=== PATIENT | female | born 1945 | race Caucasian/White ===

== ENCOUNTER 2017-05-29 02:11 | Observation (INO) | payer MEDICARE, OTHER ==
[~2017-05-29] VITALS: Ht 154.9 cm; Wt 90.3 kg
[2017-05-29] VITALS (151 sets, daily range): BP systolic 115–148; BP diastolic 35–63; PULSE 58–79; TEMP 97.9–99.5; O2SAT 96–100
[~2017-05-29 02:11] MED LIST: ALEVE 220MG220 MG PO; AMBIEN 10MG10 MG PO; AMITRIPTYLINE H25 M1 PO; CALTRATE-600 W600 MG PO; CARAFATE 1GM1 G PO; CYMBALTA 60MG60 MG PO; CYPROHEPTADINE4 MG PO; DEXILANT30 MG; GLUCOPHAGE XR500 M1 PO; HYZAAR 50-12.1 UDTAB PO; MEGA RED; NASACORT AQ N16.5 GM NS; PERCR 7.5 PO; REGLAN 10MG10 MG/TAB PO; SKELAXIN 800MG800 MG PO; ULTRAM 50MG TAB50 MG PO; VERAMYST27.5 MCG/A NS; VITAMIN C500 MG PO; WOMEN'S ONE DAI1 TAB PO
[2017-05-29] MEDS ORDERED: HYZAAR 50-12.1 UDTAB PO (02:28)
[2017-05-29] MEDS ORDERED: AMBIEN 10MG10 MG PO (02:33)
[2017-05-29] MEDS ORDERED: PREDNISONE 5MG5 MG PO (02:36)
[2017-05-29] MEDS ORDERED: TYLENOL W/COD1 UDTAB PO (02:37)
[2017-05-29] MEDS ORDERED: GLUCOPHAGE XR500 M1 PO (02:38)
[2017-05-29] MEDS ORDERED: ULTRAM 50MG TAB50 MG PO (02:38)
[2017-05-29] MEDS ORDERED: PLAQUENIL 200M200 MG PO (02:39)
[2017-05-29] MEDS ORDERED: JANUVIA 100MG100 MG PO (02:39)
[2017-05-29] MEDS ORDERED: CYMBALTA 60MG60 MG PO (02:40)
[2017-05-29] MEDS ORDERED: ARAVA10 MG PO (02:41)
[2017-05-29] MEDS ORDERED: DEXILANT60 MG PO (02:41)
[2017-05-29] MEDS ORDERED: METAXALL800 MG PO (02:42)
[2017-05-29] MEDS ORDERED: ZYRTEC 10MG10 MG PO (02:42)
[2017-05-29] MEDS ORDERED: FLONASEALLERGY NS (02:44)
[2017-05-29] MEDS ORDERED: PENNSAID 150 M150 ML TOP (02:45)
[2017-05-29] MEDS ORDERED: LOPRESSOR 550 MG/TAB PO (02:46)
[2017-05-29] MEDS ORDERED: NATURE'S BLE1000 MCG PO (02:48)
[2017-05-29] MEDS ORDERED: CENTRUM1 TA1 PO (02:49)
[2017-05-29] MEDS ORDERED: VITAMIND3 5000 PO (02:52)
[2017-05-29] MEDS ORDERED: B-12 250 MCG PO (02:53)
[2017-05-29] MEDS ORDERED: MASON NATURAL500 MG PO (02:54)
[2017-05-29 03:20] LABS: MEAN CELL VOLUME 90 fl (80.0-100.0); MEAN CORPUSCULAR HGB CONC 32 g/dl (33.0-37.0); MEAN PLATELET VOLUME 9.7 fl (7.4-10.4); PLATELET COUNT 164 K/mm3 (130-400); RED BLOOD COUNT 3.77 M/mm3 (4.10-5.30); REDCELL DISTRIBUTION WIDTH-CV 14.7 % (11.5-14.5); WHITE BLOOD COUNT 5.5 K/mm3 (4.8-10.8)
[2017-05-29 03:25] LABS: ADD PATHOLOGY DIFF REVIEW NO; HEMATOCRIT 33.9 % (37.0-47.0); HEMOGLOBIN 10.8 g/dl (12.5-16.0); MEAN CORPUSCULAR HEMOGLOBIN 29 pg (27.0-31.0)
[2017-05-29 03:31] LABS: ADJUSTED CALCIUM 9.4 mg/dL (8.4-10.2); ALBUMIN 3.1 gm/dL (3.5-5.0); BILIRUBIN,TOTAL 0.4 mg/dL (0.0-1.0); CALCIUM 8.7 mg/dL (8.4-10.2); CREATININE, serum 1.45 mg/dL (0.52-1.25); POTASSIUM 4.2 mmol/L (3.4-5.0)
[2017-05-29 03:37] LABS: BAND 3 % (0-10); METAMYELOCYTE 2 % (0-0); NEUTROPHILS 82 % (42.0-75.2); ROULEAUX 1+; TOTAL CELLS COUNTED 100
[2017-05-29 03:38] LABS: MICROCYTOSIS 1+; POIKILOCYTOSIS 1+; POLYCHROMASIA 1+; TEAR DROP CELLS 1+
[2017-05-29 10:16] LABS: PH 5 (5-8); SQUAMOUS EPITHELIAL 0-2 /hpf; URINE APPEARANCE Cloudy; URINE BACTERIA Many /hpf; URINE BILIRUBIN Negative (NEGATIVE); URINE BLOOD Negative (NEGATIVE); URINE COLOR Yellow; URINE GLUCOSE Negative (NEGATIVE); URINE KETONE Negative (NEGATIVE); URINE UROBILINOGEN Negative (NEGATIVE)
[2017-05-29 10:19] LABS: URINE WBC >50 /hpf
[2017-05-29 18:21] LABS: CALCIUM 8.3 mg/dL (8.4-10.2); CREATININE, serum 1.28 mg/dL (0.52-1.25); POTASSIUM 4.5 mmol/L (3.4-5.0)
[2017-05-30 03:37] VITALS: BP 129/34; PULSE 68; TEMP 99.1
[2017-05-30] MEDS ORDERED: CEFTIN500 MG PO (08:59)
[2017-05-30] MEDS ORDERED: NAPROSYN 2250 MG/TAB PO (09:00)
[2017-05-30] MEDS ORDERED: NORCO 325 MG-7.1 TAB PO (09:01)
[2017-05-30 10:02] VITALS: BP 151/61; PULSE 92; TEMP 98.2
== END 2017-05-30 13:53 ==
LOC: COL.ER 02:11 → ICU 05:00 → SURG 08:24
PROVIDERS: Emergency Medicine; Nurse Practitioner Family
DX: S82.191A Other fracture of upper end of right tibia, initial encounter for closed fracture (principal); W10.8XXA Fall (on) (from) other stairs and steps, initial encounter; D64.9 Anemia, unspecified; N17.9 Acute kidney failure, unspecified; M16.11 Unilateral primary osteoarthritis, right hip; M06.9 Rheumatoid arthritis, unspecified; G89.29 Other chronic pain; I10 Essential (primary) hypertension; E66.01 Morbid (severe) obesity due to excess calories; K21.9 Gastro-esophageal reflux disease without esophagitis; N39.0 Urinary tract infection, site not specified; E11.9 Type 2 diabetes mellitus without complications; Z96.653 Presence of artificial knee joint, bilateral; Z87.891 Personal history of nicotine dependence; Z80.49 Family history of malignant neoplasm of other genital organs; Z90.710 Acquired absence of both cervix and uterus
CPT/HCPCS: G0378; G8978-GP; G8979-GP; G8987-GO; G8988-GO; J0696; J1170; J1650; J3010; J7030; J7512; L2114

== ENCOUNTER 2017-05-30 10:22 | Inpatient (IN) | payer MEDICARE, OTHER ==
[~2017-05-30] VITALS: Ht 154.9 cm; Wt 91.7 kg
[~2017-05-30 10:22] MED LIST changes: +ARAVA10 MG PO; +B-12 250 MCG PO; +CEFTIN500 MG PO; +CENTRUM1 TA1 PO; +DEXILANT60 MG PO; +FLONASEALLERGY NS; +JANUVIA 100MG100 MG PO; +LOPRESSOR 550 MG/TAB PO; +MASON NATURAL500 MG PO; +METAXALL800 MG PO; +NAPROSYN 2250 MG/TAB PO; +NATURE'S BLE1000 MCG PO; +NORCO 325 MG-7.1 TAB PO; +PENNSAID 150 M150 ML TOP; +PLAQUENIL 200M200 MG PO; +PREDNISONE 5MG5 MG PO; +TYLENOL W/COD1 UDTAB PO; +VITAMIND3 5000 PO; +ZYRTEC 10MG10 MG PO
[2017-05-30 17:00] VITALS: BP 154/75; PULSE 76; TEMP 97.7
[2017-05-30 17:39] VITALS: BP 154/75; PULSE 76; TEMP 97.7
[2017-05-31 06:11] VITALS: BP 139/60; PULSE 77; TEMP 97.4
[2017-05-31 15:48] VITALS: BP 109/76; PULSE 65; TEMP 97.1
[2017-06-01 06:03] VITALS: BP 127/66; PULSE 63; TEMP 97.2
[2017-06-01 17:05] VITALS: BP 119/49; PULSE 70; TEMP 97.4
[2017-06-02 04:51] VITALS: BP 159/76; PULSE 62; TEMP 97.1
[2017-06-02 07:31] LABS: CALCIUM 8.6 mg/dL (8.4-10.2); CREATININE, serum 2.6 mg/dL (0.52-1.25); POTASSIUM 4.9 mmol/L (3.4-5.0)
[2017-06-02 16:02] VITALS: BP 111/56; PULSE 61; TEMP 97.6
[2017-06-03 05:36] VITALS: BP 145/64; PULSE 61; TEMP 97.6
[2017-06-03 07:20] LABS: MEAN CELL VOLUME 89 fl (80.0-100.0); MEAN CORPUSCULAR HGB CONC 32 g/dl (33.0-37.0); MEAN PLATELET VOLUME 9.5 fl (7.4-10.4); PLATELET COUNT 229 K/mm3 (130-400); RED BLOOD COUNT 3.31 M/mm3 (4.10-5.30); REDCELL DISTRIBUTION WIDTH-CV 14.7 % (11.5-14.5); WHITE BLOOD COUNT 5.9 K/mm3 (4.8-10.8)
[2017-06-03 07:30] LABS: HEMATOCRIT 29.4 % (37.0-47.0); HEMOGLOBIN 9.3 g/dl (12.5-16.0); MEAN CORPUSCULAR HEMOGLOBIN 28 pg (27.0-31.0)
[2017-06-03 07:43] LABS: CALCIUM 8.6 mg/dL (8.4-10.2); CREATININE, serum 1.82 mg/dL (0.52-1.25); POTASSIUM 4.8 mmol/L (3.4-5.0)
[2017-06-03 08:12] LABS: BAND 18 % (0-10); EOSINOPHIL 2 % (0-4); HYPOCHROMIA 1+; METAMYELOCYTE 3 % (0-0); MYELOCYTE 3 % (0-0); NEUTROPHILS 38 % (42.0-75.2); OVALOCYTES 1+; PLATELET ESTIMATE NORMAL (NORMAL); TOTAL CELLS COUNTED 100
[2017-06-03 08:13] LABS: ADD PATHOLOGY DIFF REVIEW YES
[2017-06-03 17:57] VITALS: BP 125/27; PULSE 72; TEMP 98.9
[2017-06-04 06:30] VITALS: BP 163/67; PULSE 60; TEMP 97.4
[2017-06-04 17:39] VITALS: BP 155/63; PULSE 62; TEMP 98.7
[2017-06-05 04:51] VITALS: BP 165/80; PULSE 63; TEMP 98
[2017-06-05 06:18] VITALS: BP 165/80; PULSE 63; TEMP 98
[2017-06-05 06:52] LABS: CALCIUM 8.4 mg/dL (8.4-10.2); CREATININE, serum 1.18 mg/dL (0.52-1.25); POTASSIUM 4.7 mmol/L (3.4-5.0)
[2017-06-05 08:52] LABS: PATHOLOGY DIFF REVIEW OK +
[2017-06-05 17:58] VITALS: BP 189/72; PULSE 66; TEMP 98.2
[2017-06-05 19:33] VITALS: BP 158/77; PULSE 69; TEMP 98.2
[2017-06-06 06:34] VITALS: BP 165/98; PULSE 96; TEMP 98
[2017-06-06 16:11] VITALS: BP 179/95; PULSE 108; TEMP 98.9
[2017-06-06 17:42] VITALS: PULSE 72
[2017-06-07 05:04] VITALS: BP 153/93; PULSE 72; TEMP 98.3
[2017-06-07 07:14] LABS: MEAN CELL VOLUME 88 fl (80.0-100.0); MEAN CORPUSCULAR HGB CONC 33 g/dl (33.0-37.0); MEAN PLATELET VOLUME 9.2 fl (7.4-10.4); PLATELET COUNT 318 K/mm3 (130-400); RED BLOOD COUNT 3.58 M/mm3 (4.10-5.30); REDCELL DISTRIBUTION WIDTH-CV 15.5 % (11.5-14.5); WHITE BLOOD COUNT 10.2 K/mm3 (4.8-10.8)
[2017-06-07 07:15] LABS: HEMATOCRIT 31.6 % (37.0-47.0); HEMOGLOBIN 10.3 g/dl (12.5-16.0); MEAN CORPUSCULAR HEMOGLOBIN 29 pg (27.0-31.0)
[2017-06-07 07:19] LABS: CALCIUM 9.2 mg/dL (8.4-10.2); CREATININE, serum 1.06 mg/dL (0.52-1.25); POTASSIUM 4.6 mmol/L (3.4-5.0)
[2017-06-07 09:06] LABS: BAND 27 % (0-10); EOSINOPHIL 1 % (0-4); NEUTROPHILS 54 % (42.0-75.2); PLATELET ESTIMATE NORMAL (NORMAL); POLYCHROMASIA 1+; TOTAL CELLS COUNTED 100
[2017-06-07 09:07] LABS: TOXIC GRANULATION PRESENT
[2017-06-07 09:08] LABS: ANISOCYTOSIS 1+
[2017-06-07 09:37] LABS: ADD PATHOLOGY DIFF REVIEW NO
[2017-06-07 18:41] VITALS: BP 115/67; PULSE 72; TEMP 97.9
[2017-06-07 18:55] VITALS: BP 157/87; PULSE 82; TEMP 98.4
[2017-06-08 04:23] VITALS: BP 127/58; PULSE 65; TEMP 97.8
[2017-06-08 18:32] VITALS: BP 110/52; PULSE 72; TEMP 98.3
[2017-06-09 05:59] VITALS: BP 115/56; PULSE 70; TEMP 97.4
[2017-06-09 16:33] VITALS: BP 121/56; PULSE 60; TEMP 7.2
[2017-06-10 05:46] VITALS: BP 145/72; PULSE 64; TEMP 98.3
[2017-06-10 16:18] VITALS: BP 98/46; PULSE 66; TEMP 97.2
[2017-06-11 06:28] VITALS: BP 132/63; PULSE 62; TEMP 97.7
[2017-06-11 16:12] VITALS: BP 107/40; PULSE 62; TEMP 97.8
[2017-06-12 04:10] VITALS: BP 150/66; PULSE 62; TEMP 98
[2017-06-12 06:44] LABS: CALCIUM 8.7 mg/dL (8.4-10.2); CREATININE, serum 1.22 mg/dL (0.52-1.25); MAGNESIUM 1.9 mg/dL (1.6-2.3); POTASSIUM 4.1 mmol/L (3.4-5.0)
[2017-06-12 16:17] VITALS: BP 116/65; PULSE 64; TEMP 98.4
[2017-06-13 04:43] VITALS: BP 141/57; PULSE 62; TEMP 98.6
[2017-06-13] MEDS ORDERED: NYSTATIN OR100 MU/ML PO (09:15)
[2017-06-13] MEDS ORDERED: PREDNISONE 5MG5 MG PO (09:15)
[2017-06-13] MEDS ORDERED: ZYRTEC 10MG10 MG PO (09:15)
[2017-06-13] MEDS ORDERED: JANUVIA 100MG100 MG PO (09:15)
[2017-06-13] MEDS ORDERED: FORTAMET500 M1 PO (09:15)
[2017-06-13] MEDS ORDERED: HYZAAR 50-12.1 UDTAB PO (09:15)
[2017-06-13] MEDS ORDERED: LOPRESSOR 550 MG/TAB PO (09:15)
[2017-06-13] MEDS ORDERED: PLAQUENIL 200M200 MG PO (09:15)
[2017-06-13] MEDS ORDERED: ULTRAM 50MG TAB50 MG PO (09:15)
[2017-06-13] MEDS ORDERED: CYMBALTA 30MG30 MG PO (09:15)
[2017-06-13] MEDS ORDERED: TYLENOL 325MG325 MG PO (09:15)
[2017-06-13] MEDS ORDERED: NORCO 325 MG-7.1 TAB PO (09:15)
[2017-06-13] MEDS ORDERED: CYMBALTA 60MG60 MG PO (09:15)
[2017-06-13] MEDS ORDERED: AMBIEN 5MG TABLE5 MG PO (09:15)
[2017-06-13] MEDS ORDERED: METAXALL800 MG PO (09:15)
[2017-06-13] MEDS ORDERED: ARAVA10 MG PO (09:15)
[2017-06-13] MEDS ORDERED: FLONASE NASAL S16 GM NS (09:15)
[2017-06-13] MEDS ORDERED: DEXILANT60 MG PO (09:15)
[2017-06-13] MEDS ORDERED: TYLENOL W/COD1 UDTAB PO (09:15)
== END 2017-06-13 15:30 | disposition home health service (06) | DRG 560 ==
PROVIDERS: Internal Medicine
DX: M97.11XD Periprosthetic fracture around internal prosthetic right knee joint, subsequent encounter (principal); N39.0 Urinary tract infection, site not specified; Z68.41 Body mass index [BMI] 40.0-44.9, adult; N17.9 Acute kidney failure, unspecified; I12.9 Hypertensive chronic kidney disease with stage 1 through stage 4 chronic kidney disease, or unspecified chronic kidney disease; E11.22 Type 2 diabetes mellitus with diabetic chronic kidney disease; N18.9 Chronic kidney disease, unspecified; E66.01 Morbid (severe) obesity due to excess calories; M06.9 Rheumatoid arthritis, unspecified; F43.22 Adjustment disorder with anxiety
CPT/HCPCS: 90791-AI; 99222-AI; 99232-AI; 99233-AI; 99239; J1644; J1650; J1815; J2550; J2997; J7030; J7512

== ENCOUNTER 2018-04-12 18:48 | Emergency (ER) | payer MEDICARE ==
[~2018-04-12] VITALS: Ht 172.7 cm; Wt 86.4 kg
[~2018-04-12 18:48] MED LIST changes: +AMBIEN 5MG TABLE5 MG PO; +CYMBALTA 30MG30 MG PO; +FLONASE NASAL S16 GM NS; +FORTAMET500 M1 PO; +NYSTATIN OR100 MU/ML PO; +TYLENOL 325MG325 MG PO
[2018-04-12 18:55] VITALS: TEMP 99.1
[2018-04-12 20:01] LABS: BASO % 0.4 % (0.0-2.0); GRAN # 8.3 (1.4-6.5); GRAN % 85.8 % (42.2-75.2); HEMOGLOBIN 10.4 g/dl (12.5-16.0); LYMPH # 0.5 (1.2-3.4); LYMPH % 5.4 % (20.0-51.0); MEAN CELL VOLUME 81 fl (80.0-100.0); MEAN CORPUSCULAR HEMOGLOBIN 27 pg (27.0-31.0); MEAN CORPUSCULAR HGB CONC 33 g/dl (33.0-37.0); MEAN PLATELET VOLUME 9.4 fl (7.4-10.4); MONO # 0.8 (0.1-0.6); MONO % 7.9 % (1.7-9.3); PLATELET COUNT 293 K/mm3 (130-400); RED BLOOD COUNT 3.89 M/mm3 (4.10-5.30)
[2018-04-12 20:06] LABS: MUCOUS Present /lpf; PH 5 (5-8); SQUAMOUS EPITHELIAL 0-2 /hpf; URINE APPEARANCE Hazy; URINE BACTERIA Occasional /hpf; URINE BILIRUBIN Negative (NEGATIVE); URINE BLOOD 1+ (NEGATIVE); URINE COLOR Yellow; URINE GLUCOSE 1+ (NEGATIVE); URINE KETONE 1+ (NEGATIVE); URINE LEUKOCYTE ESTERASE 1+ (NEGATIVE); URINE NITRATE Positive (NEGATIVE); URINE PROTEIN(semi-quant) 1+ (NEGATIVE); URINE RBC 0-2 /hpf; URINE UROBILINOGEN Negative (NEGATIVE)
[2018-04-12 20:10] LABS: HEMATOCRIT 31.6 % (37.0-47.0)
[2018-04-12 20:11] LABS: ALANINE AMINOTRANSFERASE 27 U/L (9-52); ALBUMIN 3.5 gm/dL (3.5-5.0); ALKALINE PHOSPHATASE 67 U/L (50-136); ANION GAP 17 mmol/L (7-16); AST,SGOT 23 U/L (15-37); BILIRUBIN,TOTAL 0.6 mg/dL (0.0-1.0); BLOOD UREA NITROGEN 27 mg/dL (7-17); CALCIUM 9.5 mg/dL (8.4-10.2); CARBON DIOXIDE 15 mmol/L (22-30); CHLORIDE 107 mmol/L (98-107); CREATININE, serum 2.09 mg/dL (0.52-1.25); GLUCOSE 152 mg/dL (74-106); LIPASE 108 U/L (23-300); POTASSIUM 4.7 mmol/L (3.4-5.0); SODIUM 140 mmol/L (137-145); TOTAL PROTEIN 6.9 gm/dL (6.4-8.2)
[2018-04-12 20:13] LABS: COLLECTION METHOD CLEAN CATCH; PROTHROMBIN TIME 11.5 SECONDS (9.7-12.8)
[2018-04-12 20:23] LABS: TROPONIN-I < 0.012 ng/mL (0.000-0.034)
[2018-04-12] MEDS ORDERED: CENTRUM1 TA1 PO (20:30)
[2018-04-12] MEDS ORDERED: AMBIEN 10MG10 MG PO (20:30)
[2018-04-12] MEDS ORDERED: NATURE'S BLE1000 MCG PO (20:30)
[2018-04-12] MEDS ORDERED: VITAMIN B122500 MCG SL (20:31)
[2018-04-13 00:13] LABS: MEAN CELL VOLUME 81 fl (80.0-100.0); MEAN CORPUSCULAR HGB CONC 33 g/dl (33.0-37.0); MEAN PLATELET VOLUME 9.3 fl (7.4-10.4); PLATELET COUNT 278 K/mm3 (130-400); RED BLOOD COUNT 3.74 M/mm3 (4.10-5.30); REDCELL DISTRIBUTION WIDTH-CV 15.9 % (11.5-14.5)
[2018-04-13 00:14] LABS: HEMATOCRIT 30.2 % (37.0-47.0); HEMOGLOBIN 9.9 g/dl (12.5-16.0); MEAN CORPUSCULAR HEMOGLOBIN 26 pg (27.0-31.0)
[2018-04-13 01:00] VITALS: BP 163/81; PULSE 89
[2018-04-13 01:00] LABS: PARTIAL THROMBOPLASTIN TIME 32.1 SECONDS (26.0-37.0)
== END 2018-04-13 01:05 ==
LOC: COL.ER 18:48 → MEDICAL 22:51 → COL.ER 22:51
PROVIDERS: Emergency Medicine
DX: N12 Tubulo-interstitial nephritis, not specified as acute or chronic (principal); Z90.49 Acquired absence of other specified parts of digestive tract
CPT/HCPCS: J0696; J1644; J2270; J2550